=== PATIENT | female | born 1930 | race Caucasian/White ===

== ENCOUNTER → 2016-12-27 | Outpatient (CLI) | payer MEDICARE ==
--- NOTE | 2016-12-27 13:11 | XR ---
EXAMINATION TYPE: XR cervical spine limited DATE OF EXAM: 12/27/2016 1:05 PM COMPARISON: 10/02/2013 HISTORY: Pain TECHNIQUE: Four views are submitted. FINDINGS: The odontoid is intact. There is stable anterolisthesis of C4 on C5 and C3 on C4. Facet arthropathy at all levels appear significant with moderate degenerative disc disease at levels C3-C5 and severe c hanges at levels C5-C7. Foraminal encroachment suspected at virtually every level. Calcification soft tissue the neck likely related to carotid artery correlate clinically. IMPRESSION: 1. Anterolisthesis at C4-C5 and C3-C4 stable. 2. Multilevel facet arthropathy and degenerative disc disease again noted with progression at C5-C6.
== END | disposition home or self-care (01) ==
LOC: RADXRMAIN 12:45
PROVIDERS: ATTEND Internal Medicine
DX: M50.31 Other cervical disc degeneration, high cervical region (principal); M46.92 Unspecified inflammatory spondylopathy, cervical region
CPT/HCPCS: 72040

== ENCOUNTER → 2017-03-22 | Outpatient (CLI) | payer MEDICARE ==
--- NOTE | 2017-03-22 14:15 | MR ---
EXAMINATION TYPE: MR angio head wo con DATE OF EXAM: 03/22/2017 COMPARISON: MR brain same date HISTORY: Headaches TECHNIQUE: Time of flight images focusing on the [place] of [place] were performed without contrast. FINDINGS: No evident vascular malformation or aneurysm. No significant stenosis. 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 IMPRESSION: No significant abnormality evident.
--- NOTE | 2017-03-22 16:13 | MR ---
MR brain MRI C-spine without contrast HISTORY: Headaches and neck pain Multiplanar multisequence imaging through the brain and cervical spine Exam correlated to prior MRI brain dated 07 December 2014 MR brain: There is no restricted diffusion cortical atrophy is again noted. There is motion on the ex am. Right mastoid air cells again show inflammatory change. Orbits show symmetric appearance. Periven tricular and subcortical confluent and scattered hyperintensities on inversion recovery and T2-weight ed sequences are again seen, abnormal increased signal also present within the raymundo. There are normal vascular flow voids. No hemorrhage or hydrocephalus. Corpus callosum, pituitary, cervical medullary junction, cerebellopontine angles are stable. IMPRESSION: Stable white matter demyelination likely on the basis of chronic small vessel ischemia. C orrelate for right mastoiditis. Age-related atrophy. Cervical spine MRI: Cervical vertebral bodies show preserved height. Anterolisthesis grade 1 C3-4, C4 -5, retrolisthesis grade 1 C5-6 and C6-7. There is multilevel spondylosis, endplate discogenic marrow signal change, loss of disc height and signal especially at C5-6 and C6-7. Cervical cord signal, cer vical medullary junction are normal. C2-3: Mild right-sided foraminal encroachment C3-4: Right-sided foraminal encroachment is present due to vertebral joint hypertrophy facet arthropa thy. Posterior broad-based disc bulge causes mild anterior mass effect on the thecal sac. C4-5: There is foraminal encroachment present. Posterior broad-based disc bulge causes minimal anteri or mass effect on the thecal sac. C5-6: Left posterior paracentral extension of endplate disc complex causes anterolateral mass effect on the thecal sac. There is some right-sided greater than left foraminal encroachment. C6-7: Posterior extension of endplate disc complex causes mild anterior mass effect on the thecal sac . No significant central stenosis or foraminal encroachment. C7-T1: Within normal limits IMPRESSION: Degenerative disc disease as described. No significant central canal stenosis.
== END | disposition home or self-care (01) ==
LOC: RADMRIMAIN 11:37
PROVIDERS: ATTEND Psychiatry & Neurology Pain Medicine
DX: M50.30 Other cervical disc degeneration, unspecified cervical region (principal); R51 Headache
CPT/HCPCS: 70544; 70551; 72141

== ENCOUNTER → 2017-06-08 | Outpatient (CLI) | payer MEDICARE ==
[2017-06-08 13:34] LABS: Uric Acid 6.8 mg/dL (3.7-7.4)
[2017-06-08 14:05] LABS: C Reactive Protein <5.0 mg/L (<10.0)
== END | disposition home or self-care (01) ==
LOC: LABWHC1 12:26
PROVIDERS: ATTEND Psychiatry & Neurology Pain Medicine
DX: M10.9 Gout, unspecified (principal); M06.9 Rheumatoid arthritis, unspecified
CPT/HCPCS: 36415; 84550; 85652; 86140